=== PATIENT | female | born 1950 | race Caucasian/White ===

== ENCOUNTER 2022-08-01 14:15 | Outpatient (CLI) | payer MEDICARE, BC | END 2022-08-01 14:16 | disposition home or self-care (01) | LOC: CSHMAMMO 14:15 | PROVIDERS: ATTEND Orthopaedic Surgery | DX: M54.2 Cervicalgia (principal); M85.851 Other specified disorders of bone density and structure, right thigh; M85.852 Other specified disorders of bone density and structure, left thigh | CPT/HCPCS: 77080 ==